=== PATIENT | female | born 1970 | race Caucasian/White ===

== ENCOUNTER 2019-04-18 19:09 | Emergency (ER) | payer OTHER ==
[~2019-04-18] VITALS: Ht 165.1 cm; Wt 71.7 kg
[~2019-04-18 19:09] MED LIST: CYMBALTA60 MG; DIOVAN HCT 320/1 TAB; FOLIC ACID/B-6/1 TAB; METHOTREXATE2.5 MG; MILLIPRED5 MG; NABUMETONE500 MG PO; NEURONTIN800 MG; PERCOCET 5/3251 TAB PO; PLAQUENIL; RISPERDAL4 MG; SYNTHROID88 MCG
[2019-04-18] MEDS ORDERED: AVAPRO150 MG (19:31)
[2019-04-18] MEDS ORDERED: CLONAZEPAM2 MG (19:32)
== END 2019-04-18 20:59 | disposition home or self-care (01) ==
LOC: ER 19:09
DX: S92.592A Other fracture of left lesser toe(s), initial encounter for closed fracture (principal); W22.03XA Walked into furniture, initial encounter; Y93.89 Activity, other specified; Y92.018 Other place in single-family (private) house as the place of occurrence of the external cause; Y99.8 Other external cause status

== ENCOUNTER 2019-11-27 18:14 | Emergency (ER) | payer OTHER ==
[~2019-11-27] VITALS: Ht 165.1 cm; Wt 73.9 kg
[~2019-11-27 18:14] MED LIST changes: +AVAPRO150 MG; +CLONAZEPAM2 MG
[2019-11-27] MEDS ORDERED: NAPROXEN500 MG PO (21:52)
== END 2019-11-27 22:21 | disposition home or self-care (01) ==
LOC: ER 18:14
DX: S40.022A Contusion of left upper arm, initial encounter (principal); W18.09XA Striking against other object with subsequent fall, initial encounter; Y93.89 Activity, other specified; Y92.89 Other specified places as the place of occurrence of the external cause; Y99.8 Other external cause status

== ENCOUNTER 2023-03-30 19:15 | Emergency (ER) | payer OTHER ==
[~2023-03-30] VITALS: Ht 165.1 cm; Wt 76.7 kg
[~2023-03-30 19:15] MED LIST changes: +NAPROXEN500 MG PO
[2023-03-30] MEDS ORDERED: DIOVAN320 MG PO (19:53)
== END 2023-03-30 20:41 | disposition home or self-care (01) ==
LOC: ER 19:15
DX: R07.89 Other chest pain (principal); Z91.040 Latex allergy status

== ENCOUNTER 2023-11-02 10:17 | Emergency (ER) | payer OTHER ==
[~2023-11-02] VITALS: Ht 165.1 cm; Wt 78.9 kg
[~2023-11-02 10:17] MED LIST changes: +DIOVAN320 MG PO
== END 2023-11-02 14:19 | disposition home or self-care (01) ==
LOC: ER 10:17
DX: M79.674 Pain in right toe(s) (principal); Z91.040 Latex allergy status